=== PATIENT | female | born 1990 | race Caucasian/White ===

== ENCOUNTER 2017-02-04 23:36 | Emergency (ER) | payer OTHER ==
[~2017-02-04] VITALS: Ht 167.6 cm; Wt 49.9 kg
[~2017-02-04 23:36] MED LIST: ACIPHEX20 MG PO; ANAPROX DS550 MG PO; ATIVAN0.5 MG PO; BACTRIM DS 8001 TA1 PO; BACTRIM PEDIAT200 ML PO; CIPRO500 MG PO; CIPROFLOXACIN500 MG PO; CLARITIN10 MG PO; CLEOCIN150 MG PO; CLINDAMYCIN HC300 MG PO; COLACE-T100 MG PO; DOK COLACE100 MG PO; FIORICET 325 MG1 TAB PO; FLONASE 0.05% 121 EA NAS; GYNE-LOTRIMIN 31 KIT VG; HYDROCODONE BIT1 T11 PO; IBU-6600 MG PO; IRON TABLETS325 MG PO; KEFLEX500 MG PO; MACROBID100 M1 PO; MEDROL DOSEPAK4 MG PO; MOTRIN 800 MG E4 TAB PO; MOTRIN400 MG PO; MOTRIN600 MG PO; MOTRIN800 MG PO; MUCINEX D 600 M1 TE1; NAPROSYN500 MG PO; NITROFURANTOIN100 M9 PO; NKHM; OMNICEF300 MG; PHENERGAN25 M3 PO; PHENERGAN6.25 MG/5 PO; PRENATAL1 TA1 PO; PRENATAL1 TA7 PO; PROTONIX40 MG PO; Peridex 473 ML473 ML PO; SALINE 45 ML45 M1 NAS; TOBRAMYCIN 5 ML5 M1 OPH; TRAMADOL HCL50 MG PO; ULTRAM50 MG PO; ZITHROMAX Z PA250 MG PO; ZITHROMAX250 MG PO; ZYRTEC10 MG PO; [UNRECOGNIZED DRUG - OTHER] PO
[2017-02-05] MEDS ORDERED: Motrin,Rufen800 MG PO (00:21)
[2017-02-05] MEDS ORDERED: CLINDAMYCIN HC300 MG PO (00:21)
== END 2017-02-05 00:31 | disposition home or self-care (01) ==
LOC: ED 23:36
DX: K08.89 Other specified disorders of teeth and supporting structures (principal); F17.200 Nicotine dependence, unspecified, uncomplicated; Z88.1 Allergy status to other antibiotic agents

== ENCOUNTER 2017-02-09 19:55 | Emergency (ER) | payer OTHER ==
[~2017-02-09] VITALS: Ht 165.1 cm; Wt 52.2 kg
[~2017-02-09 19:55] MED LIST changes: +Motrin,Rufen800 MG PO
== END 2017-02-09 22:13 | disposition home or self-care (01) ==
LOC: ED 19:55
DX: Z32.01 Encounter for pregnancy test, result positive (principal); Z3A.01 Less than 8 weeks gestation of pregnancy; Z88.1 Allergy status to other antibiotic agents

== ENCOUNTER → 2017-02-25 | Outpatient (CLI) | payer OTHER | END | disposition home or self-care (01) | LOC: US 16:50 | DX: Z34.80 Encounter for supervision of other normal pregnancy, unspecified trimester (principal); Z3A.00 Weeks of gestation of pregnancy not specified ==

== ENCOUNTER 2017-03-28 19:58 | Emergency (ER) | payer OTHER ==
[~2017-03-28] VITALS: Ht 165.1 cm; Wt 54.9 kg
[2017-03-28 20:55] LABS: BILIRUBIN NEGATIVE (NEGATIVE); BLOOD NEGATIVE (NEGATIVE); CLARITY CLEAR (CLEAR); COLOR YELLOW (YELLOW); GLUCOSE NEGATIVE (NEGATIVE); KETONE TRACE (NEGATIVE); LEUKO ESTERASE TRACE (NEGATIVE); NITRITE POSITIVE (NEGATIVE); PROTEIN NEGATIVE (NEGATIVE); SPECIFIC GRAVITY 1.025 (1.005-1.030)
[2017-03-28 21:04] LABS: CALCIUM OXALATE CRYSTALS 2+
[2017-03-28 21:05] LABS: URINE REFLEX COMMENT YES (NO)
== END 2017-03-28 20:47 | disposition home or self-care (01) ==
LOC: ED 19:58
PROVIDERS: Student in an Organized Health Care Education/Training Program
DX: O23.41 Unspecified infection of urinary tract in pregnancy, first trimester (principal); O99.341 Other mental disorders complicating pregnancy, first trimester; F41.9 Anxiety disorder, unspecified; G43.909 Migraine, unspecified, not intractable, without status migrainosus; Z88.1 Allergy status to other antibiotic agents; Z3A.11 11 weeks gestation of pregnancy

== ENCOUNTER 2017-08-03 10:23 | Emergency (ER) | payer OTHER ==
[~2017-08-03] VITALS: Ht 162.5 cm; Wt 63.5 kg
[2017-08-03] MEDS ORDERED: AVPAK AZITHROM250 M1 PO (10:47)
== END 2017-08-03 11:22 | disposition home or self-care (01) ==
LOC: ED 10:23
DX: O99.513 Diseases of the respiratory system complicating pregnancy, third trimester (principal); J06.9 Acute upper respiratory infection, unspecified; O99.333 Smoking (tobacco) complicating pregnancy, third trimester; O26.893 Other specified pregnancy related conditions, third trimester; G43.909 Migraine, unspecified, not intractable, without status migrainosus; Z88.1 Allergy status to other antibiotic agents; Z3A.29 29 weeks gestation of pregnancy

== ENCOUNTER 2017-08-09 17:39 | Emergency (ER) | payer OTHER ==
[~2017-08-09] VITALS: Ht 167.6 cm; Wt 63.5 kg
[~2017-08-09 17:39] MED LIST changes: +AVPAK AZITHROM250 M1 PO
[2017-08-09 17:58] LABS: BILIRUBIN NEGATIVE (NEGATIVE); BLOOD TRACE-INTACT (NEGATIVE); CLARITY CLOUDY (CLEAR); COLOR YELLOW (YELLOW); GLUCOSE NEGATIVE (NEGATIVE); KETONE NEGATIVE (NEGATIVE); LEUKO ESTERASE 3+ (NEGATIVE); NITRITE POSITIVE (NEGATIVE); PH 5.5 (5.0-9.0); SPECIFIC GRAVITY <= 1.005 (1.005-1.030); UROBILINOGEN 0.2 E.U./dl (0.2-1.0)
[2017-08-09 18:05] LABS: BACTERIA 4+
[2017-08-09 18:06] LABS: WBC 51-100 wbc/hpf (0-5)
[2017-08-09] MEDS ORDERED: MACROBID100 M1 PO (19:03)
== END 2017-08-09 22:04 | disposition home or self-care (01) ==
LOC: ED 17:39
PROVIDERS: Physician Assistant
DX: O23.43 Unspecified infection of urinary tract in pregnancy, third trimester (principal); Z88.1 Allergy status to other antibiotic agents; Z3A.30 30 weeks gestation of pregnancy

== ENCOUNTER 2017-12-30 17:56 | Emergency (ER) | payer OTHER ==
[~2017-12-30] VITALS: Ht 167.6 cm; Wt 56.7 kg
[2017-12-30] MEDS ORDERED: Peridex 473 ML473 ML PO (18:11)
[2017-12-30] MEDS ORDERED: NAPROSYN500 MG PO (18:11)
[2017-12-30] MEDS ORDERED: CLINDAMYCIN150 MG PO (18:11)
== END 2017-12-30 18:23 | disposition home or self-care (01) ==
LOC: ED 17:56
DX: K02.9 Dental caries, unspecified (principal); F17.200 Nicotine dependence, unspecified, uncomplicated; F41.9 Anxiety disorder, unspecified; Z88.1 Allergy status to other antibiotic agents

== ENCOUNTER 2018-05-07 04:15 | Emergency (ER) | payer OTHER ==
[~2018-05-07] VITALS: Ht 167.6 cm; Wt 56.7 kg
[~2018-05-07 04:15] MED LIST changes: +CLINDAMYCIN150 MG PO
[2018-05-07] MEDS ORDERED: CLINDAMYCIN HC300 MG PO (04:25)
[2018-05-07] MEDS ORDERED: Motrin,Rufen800 MG PO (04:25)
== END 2018-05-07 04:46 | disposition home or self-care (01) ==
LOC: ED 04:15
DX: K02.9 Dental caries, unspecified (principal); K04.01 Reversible pulpitis; G43.909 Migraine, unspecified, not intractable, without status migrainosus; F17.200 Nicotine dependence, unspecified, uncomplicated; Z88.1 Allergy status to other antibiotic agents; Z79.899 Other long term (current) drug therapy

== ENCOUNTER 2018-05-27 01:29 | Emergency (ER) | payer OTHER ==
[~2018-05-27] VITALS: Ht 165.1 cm; Wt 54.4 kg
[2018-05-27 01:50] LABS: BILIRUBIN NEGATIVE (NEGATIVE); BLOOD NEGATIVE (NEGATIVE); CLARITY CLEAR (CLEAR); COLOR YELLOW (YELLOW); GLUCOSE NEGATIVE (NEGATIVE); KETONE NEGATIVE (NEGATIVE); LEUKO ESTERASE NEGATIVE (NEGATIVE); NITRITE NEGATIVE (NEGATIVE); PH 7.5 (5.0-9.0); UROBILINOGEN 0.2 E.U./dl (0.2-1.0)
[2018-05-27 02:03] LABS: EPITHELIAL CELLS 0-5
== END 2018-05-27 02:30 | disposition home or self-care (01) ==
LOC: ED 01:29
PROVIDERS: Student in an Organized Health Care Education/Training Program
DX: Z32.02 Encounter for pregnancy test, result negative (principal); F17.200 Nicotine dependence, unspecified, uncomplicated; G43.909 Migraine, unspecified, not intractable, without status migrainosus; Z88.1 Allergy status to other antibiotic agents; Z79.899 Other long term (current) drug therapy

== ENCOUNTER 2018-08-14 19:41 | Emergency (ER) | payer OTHER ==
[~2018-08-14] VITALS: Ht 165.1 cm; Wt 59.0 kg
[2018-08-14] MEDS ORDERED: CLEOCIN HCL150 MG PO (20:01)
[2018-08-14] MEDS ORDERED: NAPROSYN500 MG PO (20:01)
== END 2018-08-14 20:09 | disposition home or self-care (01) ==
LOC: ED 19:41
DX: K04.7 Periapical abscess without sinus (principal); Z88.0 Allergy status to penicillin; Z88.1 Allergy status to other antibiotic agents

== ENCOUNTER 2019-01-22 10:35 | Emergency (ER) | payer OTHER ==
[~2019-01-22] VITALS: Ht 165.1 cm; Wt 56.7 kg
[~2019-01-22 10:35] MED LIST changes: +CLEOCIN HCL150 MG PO
[2019-01-22] MEDS ORDERED: IBU800 MG PO (11:38)
[2019-01-22] MEDS ORDERED: CLEOCIN HCL150 MG PO (11:38)
[2019-02-04] MEDS ORDERED: PREDNISONE50 MG PO (12:38)
[2019-02-04] MEDS ORDERED: ZITHROMAX250 MG PO (12:38)
[2019-02-04] MEDS ORDERED: FLONASE ALLERG9.9 ML NAS (12:38)
== END 2019-01-22 12:11 | disposition home or self-care (01) ==
LOC: ED 10:35
DX: S02.5XXA Fracture of tooth (traumatic), initial encounter for closed fracture (principal); F17.200 Nicotine dependence, unspecified, uncomplicated; Z88.1 Allergy status to other antibiotic agents; X58.XXXA Exposure to other specified factors, initial encounter; Y93.89 Activity, other specified; Y92.89 Other specified places as the place of occurrence of the external cause; Y99.8 Other external cause status

== ENCOUNTER 2019-02-23 13:13 | Emergency (ER) | payer OTHER ==
[~2019-02-23] VITALS: Ht 165.1 cm; Wt 54.4 kg
[~2019-02-23 13:13] MED LIST changes: +FLONASE ALLERG9.9 ML NAS; +IBU800 MG PO; +PREDNISONE50 MG PO
[2019-02-23] MEDS ORDERED: BUSPAR5 MG PO (13:16)
[2019-02-23] MEDS ORDERED: CLINDAMYCIN HC300 MG PO (13:44)
[2019-02-23] MEDS ORDERED: ANAPROX DS550 MG PO (13:44)
== END 2019-02-23 14:10 | disposition home or self-care (01) ==
LOC: ED 13:13
DX: K04.7 Periapical abscess without sinus (principal); F17.200 Nicotine dependence, unspecified, uncomplicated; Z88.1 Allergy status to other antibiotic agents; Z79.899 Other long term (current) drug therapy

== ENCOUNTER 2019-04-08 20:47 | Emergency (ER) | payer SELFPAY ==
[~2019-04-08 20:47] MED LIST changes: +BUSPAR5 MG PO
[2019-04-08 21:40] LABS: BASO # 0.1 10*3/uL (0.0-0.1); BASO % 0.4 % (0.0-1.0); EOS # 0.3 10*3/uL (0.0-0.4); EOS % 2.4 % (1.0-4.0); HEMATOCRIT 35.6 % (37.0-47.0); HEMOGLOBIN 12.4 g/dl (12.0-16.0); LYMPH # 3.2 10*3/uL (1.3-4.4); LYMPH % 26.6 % (27.0-41.0); MEAN CORPUSCULAR HGB 31.7 pg (27.0-31.0); MEAN CORPUSCULAR HGB CONC 34.8 g/dl (33.0-37.0); MEAN PLATELET VOLUME 9.7 fl (9.6-12.3); MONO # 0.6 10*3/uL (0.1-1.0); MONO % 5.3 % (3.0-9.0); NEUT # 7.8 10*3/uL (2.3-7.9); PLATELET COUNT AUTOMATED 244 10*3/uL (130-400); RED BLOOD COUNT 3.91 10*6/uL (4.10-5.10); RED CELL DISTRI WIDTH 12.3 % (0-14.5)
[2019-04-08 22:00] LABS: ALBUMIN 3.5 gm/dl (3.1-4.5); ALKALINE PHOSPHATASE 75 U/L (45-117); BUN 8 mg/dl (7-24); CHLORIDE 109 mmol/L (98-107); CREATININE 0.72 mg/dL (0.55-1.02); POTASSIUM 3.6 mmol/L (3.5-5.1); SGPT/ALT 11 U/L (12-78); SODIUM 140 mmol/L (136-145); TOTAL PROTEIN 7.1 gm/dL (6.4-8.2)
[2019-04-08 22:02] LABS: SGOT/AST < 3 IU/L (3-35)
[2019-04-09 00:12] LABS: BILIRUBIN NEGATIVE (NEGATIVE); BLOOD 3+ (NEGATIVE); CLARITY CLEAR (CLEAR); COLOR YELLOW (YELLOW); GLUCOSE NEGATIVE (NEGATIVE); KETONE NEGATIVE (NEGATIVE); LEUKO ESTERASE NEGATIVE (NEGATIVE); NITRITE NEGATIVE (NEGATIVE); SPECIFIC GRAVITY <= 1.005 (1.005-1.030); UROBILINOGEN 0.2 E.U./dl (0.2-1.0)
[2019-04-09 00:24] LABS: BACTERIA 4+
== END 2019-04-09 01:00 | disposition home or self-care (01) ==
LOC: ED 20:47
PROVIDERS: Physician Assistant
DX: O20.9 Hemorrhage in early pregnancy, unspecified (principal); Z3A.09 9 weeks gestation of pregnancy; Z88.1 Allergy status to other antibiotic agents; Z79.2 Long term (current) use of antibiotics; Z79.899 Other long term (current) drug therapy

== ENCOUNTER 2019-06-15 15:38 | Emergency (ER) | payer OTHER ==
[~2019-06-15] VITALS: Ht 165.1 cm; Wt 56.7 kg
[2019-06-15 15:56] LABS: BILIRUBIN NEGATIVE (NEGATIVE); BLOOD 1+ (NEGATIVE); CLARITY CLOUDY (CLEAR); COLOR YELLOW (YELLOW); GLUCOSE NEGATIVE (NEGATIVE); KETONE NEGATIVE (NEGATIVE); LEUKO ESTERASE 3+ (NEGATIVE); NITRITE POSITIVE (NEGATIVE); SPECIFIC GRAVITY 1.015 (1.005-1.030); UROBILINOGEN 0.2 E.U./dl (0.2-1.0)
[2019-06-15 16:11] LABS: BASO # 0.1 10*3/uL (0.0-0.1); BASO % 0.5 % (0.0-1.0); EOS # 0.2 10*3/uL (0.0-0.4); EOS % 1.7 % (1.0-4.0); HEMATOCRIT 33.8 % (37.0-47.0); HEMOGLOBIN 11.4 g/dl (12.0-16.0); LYMPH # 2.3 10*3/uL (1.3-4.4); LYMPH % 18.4 % (27.0-41.0); MEAN CELL VOLUME 95.8 fl (81.0-99.0); MEAN CORPUSCULAR HGB 32.3 pg (27.0-31.0); MEAN CORPUSCULAR HGB CONC 33.7 g/dl (33.0-37.0); MEAN PLATELET VOLUME 9.4 fl (9.6-12.3); MONO # 0.6 10*3/uL (0.1-1.0); MONO % 4.5 % (3.0-9.0); NEUT # 9.4 10*3/uL (2.3-7.9); NEUT % 74.3 % (47.0-73.0); PLATELET COUNT AUTOMATED 241 10*3/uL (130-400); RED BLOOD COUNT 3.53 10*6/uL (4.10-5.10); RED CELL DISTRI WIDTH 13.3 % (0-14.5); WHITE BLOOD COUNT 12.7 10*3/uL (4.8-10.8)
[2019-06-15 16:25] LABS: ALKALINE PHOSPHATASE 79 U/L (45-117); BUN 6 mg/dl (7-24); CHLORIDE 108 mmol/L (98-107); CREATININE 0.63 mg/dL (0.55-1.02); POTASSIUM 3.5 mmol/L (3.5-5.1); SGOT/AST 10 IU/L (3-35); SGPT/ALT 13 U/L (12-78); SODIUM 137 mmol/L (136-145); TOTAL PROTEIN 7.1 gm/dL (6.4-8.2)
[2019-06-15 16:43] LABS: BACTERIA 4+; WBC TNTC wbc/hpf (0-5)
[2019-06-15] MEDS ORDERED: MACROBID100 M1 PO (16:48)
== END 2019-06-15 16:51 | disposition home or self-care (01) ==
LOC: ED 15:38
PROVIDERS: Physician Assistant
DX: O23.42 Unspecified infection of urinary tract in pregnancy, second trimester (principal); Z3A.19 19 weeks gestation of pregnancy; Z88.1 Allergy status to other antibiotic agents; Z79.899 Other long term (current) drug therapy

== ENCOUNTER 2019-08-01 11:43 | Emergency (ER) | payer OTHER ==
[~2019-08-01] VITALS: Ht 165.1 cm; Wt 57.6 kg
[2019-08-01 12:04] LABS: BILIRUBIN NEGATIVE (NEGATIVE); BLOOD NEGATIVE (NEGATIVE); CLARITY SL CLOUDY (CLEAR); COLOR STRAW (YELLOW); GLUCOSE NEGATIVE (NEGATIVE); KETONE NEGATIVE (NEGATIVE); LEUKO ESTERASE 2+ (NEGATIVE); NITRITE NEGATIVE (NEGATIVE); SPECIFIC GRAVITY <= 1.005 (1.005-1.030); UROBILINOGEN 0.2 E.U./dl (0.2-1.0)
[2019-08-01 12:10] LABS: BACTERIA 4+; WBC 51-100 wbc/hpf (0-5)
[2019-08-01] MEDS ORDERED: MACROBID100 M1 PO (12:31)
== END 2019-08-01 12:32 | disposition home or self-care (01) ==
LOC: ED 11:43
PROVIDERS: Nurse Practitioner Family
DX: O23.42 Unspecified infection of urinary tract in pregnancy, second trimester (principal); Z3A.25 25 weeks gestation of pregnancy; Z88.1 Allergy status to other antibiotic agents; Z79.2 Long term (current) use of antibiotics; Z79.899 Other long term (current) drug therapy

== ENCOUNTER 2019-10-06 11:43 | Emergency (ER) | payer OTHER ==
[~2019-10-06] VITALS: Ht 165.1 cm; Wt 63.5 kg
[2019-10-06 12:10] LABS: BILIRUBIN NEGATIVE (NEGATIVE); BLOOD NEGATIVE (NEGATIVE); CLARITY SL CLOUDY (CLEAR); COLOR YELLOW (YELLOW); GLUCOSE NEGATIVE (NEGATIVE); KETONE NEGATIVE (NEGATIVE); LEUKO ESTERASE 2+ (NEGATIVE); NITRITE POSITIVE (NEGATIVE); SPECIFIC GRAVITY 1.015 (1.005-1.030); UROBILINOGEN 0.2 E.U./dl (0.2-1.0)
[2019-10-06 12:37] LABS: BACTERIA 4+; WBC 31-40 wbc/hpf (0-5)
== END 2019-10-06 13:30 | disposition short-term general hospital (02) ==
LOC: ED 11:43
PROVIDERS: Emergency Medicine
DX: O62.9 Abnormality of forces of labor, unspecified (principal); O99.353 Diseases of the nervous system complicating pregnancy, third trimester; G43.909 Migraine, unspecified, not intractable, without status migrainosus; Z3A.38 38 weeks gestation of pregnancy; Z88.1 Allergy status to other antibiotic agents; Z79.2 Long term (current) use of antibiotics; Z79.899 Other long term (current) drug therapy

== ENCOUNTER 2019-10-31 15:10 | Emergency (ER) | payer OTHER ==
[~2019-10-31] VITALS: Ht 165.1 cm; Wt 64.9 kg
[2019-10-31] MEDS ORDERED: CLINDAMYCIN HC300 MG PO (15:29)
== END 2019-10-31 15:27 | disposition home or self-care (01) ==
LOC: ED 15:10
DX: O99.613 Diseases of the digestive system complicating pregnancy, third trimester (principal); K04.7 Periapical abscess without sinus; Z3A.36 36 weeks gestation of pregnancy; Z88.1 Allergy status to other antibiotic agents

== ENCOUNTER 2022-08-26 13:45 | Emergency (ER) | payer OTHER ==
[~2022-08-26] VITALS: Ht 165.1 cm; Wt 68.0 kg
[2022-08-26] MEDS ORDERED: CLINDAMYCIN HC300 MG PO (13:59)
== END 2022-08-26 14:16 | disposition home or self-care (01) ==
LOC: ED 13:45
DX: K08.89 Other specified disorders of teeth and supporting structures (principal); Z88.1 Allergy status to other antibiotic agents

== ENCOUNTER 2022-12-10 15:10 | Emergency (ER) | payer OTHER ==
[~2022-12-10] VITALS: Ht 165.1 cm; Wt 73.5 kg
[2022-12-10] MEDS ORDERED: VIBRAMYCIN100 MG PO (17:36)
== END 2022-12-10 17:56 | disposition home or self-care (01) ==
LOC: ED 15:10
DX: H66.92 Otitis media, unspecified, left ear (principal); Z88.1 Allergy status to other antibiotic agents; Z98.890 Other specified postprocedural states

== ENCOUNTER 2023-07-22 14:32 | Emergency (ER) | payer OTHER ==
[~2023-07-22] VITALS: Ht 167.6 cm; Wt 73.5 kg
[~2023-07-22 14:32] MED LIST changes: +VIBRAMYCIN100 MG PO
[2023-07-22 15:16] LABS: BILIRUBIN Negative (Negative); BLOOD Negative (Negative); CLARITY Clear (Clear); COLOR Yellow (Yellow); GLUCOSE Negative (Negative); KETONE Negative (Negative); LEUKO ESTERASE Trace (Negative); NITRITE Negative (Negative); SPECIFIC GRAVITY >= 1.030 (1.001-1.030)
[2023-07-22 15:47] LABS: BACTERIA 2+; EPITHELIAL CELLS 16-20
[2023-07-22] MEDS ORDERED: CIPRO500 MG PO (16:12)
== END 2023-07-22 16:21 | disposition home or self-care (01) ==
LOC: ED 14:32
PROVIDERS: Emergency Medicine
DX: N39.0 Urinary tract infection, site not specified (principal); Z88.1 Allergy status to other antibiotic agents

== ENCOUNTER 2023-08-23 15:08 | Emergency (ER) | payer OTHER | END 2023-08-23 15:38 | disposition left against medical advice (07) | LOC: ED 15:08 | DX: J02.9 Acute pharyngitis, unspecified (principal); H92.01 Otalgia, right ear; Z88.1 Allergy status to other antibiotic agents; Z53.21 Procedure and treatment not carried out due to patient leaving prior to being seen by health care provider ==

== ENCOUNTER 2024-05-03 11:45 | Emergency (ER) | payer OTHER ==
[~2024-05-03] VITALS: Ht 162.5 cm; Wt 72.6 kg
[2024-05-03] MEDS ORDERED: CLINDAMYCIN HCL 300 MG CAPSULE PO ONE (12:05)
[2024-05-03] MEDS ORDERED: CLEOCIN HCL300 MG PO (12:07)
== END 2024-05-03 12:23 | disposition home or self-care (01) ==
LOC: ED 11:45
DX: K04.7 Periapical abscess without sinus (principal); F41.9 Anxiety disorder, unspecified; Z88.1 Allergy status to other antibiotic agents

== ENCOUNTER 2024-08-02 23:36 | Emergency (ER) | payer OTHER ==
[~2024-08-02] VITALS: Ht 165.1 cm; Wt 74.8 kg
[~2024-08-02 23:36] MED LIST changes: +CLEOCIN HCL300 MG PO
[2024-08-03 00:17] LABS: BILIRUBIN Negative (Negative); BLOOD Negative (Negative); CLARITY Clear (Clear); COLOR Yellow (Yellow); GLUCOSE Negative (Negative); KETONE Trace (Negative); LEUKO ESTERASE Negative (Negative); NITRITE Negative (Negative); SPECIFIC GRAVITY >= 1.030 (1.001-1.030)
[2024-08-03 00:25] LABS: BACTERIA TRACE; MUCOUS 2+; RBC 0-2 rbc/hpf (0-2)
[2024-08-03] MEDS ORDERED: METHOCARBAMOL 500 MG TAB PO ONE (00:35)
[2024-08-03] MEDS ORDERED: Ketorolac Tromethamine 60 MG/2 ML VIAL IM ONE (00:35)
[2024-08-03] MEDS ORDERED: NAPROXEN250 MG PO (00:39)
[2024-08-03] MEDS ORDERED: METHOCARBAMOL500 M1 PO (00:39)
== END 2024-08-03 00:56 | disposition home or self-care (01) ==
LOC: ED 23:36
PROVIDERS: Internal Medicine
DX: S39.012A Strain of muscle, fascia and tendon of lower back, initial encounter (principal); F41.9 Anxiety disorder, unspecified; R30.0 Dysuria; Z88.1 Allergy status to other antibiotic agents; X58.XXXA Exposure to other specified factors, initial encounter; Y93.89 Activity, other specified; Y92.009 Unspecified place in unspecified non-institutional (private) residence as the place of occurrence of the external cause; Y99.8 Other external cause status

== ENCOUNTER 2024-08-19 16:31 | Emergency (ER) | payer OTHER ==
[~2024-08-19] VITALS: Ht 165.1 cm; Wt 72.6 kg
[~2024-08-19 16:31] MED LIST changes: +METHOCARBAMOL500 M1 PO; +NAPROXEN250 MG PO
== END 2024-08-19 17:57 | disposition left against medical advice (07) ==
LOC: ED 16:31
DX: N93.9 Abnormal uterine and vaginal bleeding, unspecified (principal); F41.9 Anxiety disorder, unspecified; Z88.1 Allergy status to other antibiotic agents; Z53.29 Procedure and treatment not carried out because of patient's decision for other reasons

== ENCOUNTER 2024-09-27 11:38 | Emergency (ER) | payer OTHER ==
[~2024-09-27] VITALS: Ht 162.5 cm; Wt 72.6 kg
[2024-09-27] MEDS ORDERED: AVPAK AZITHROM250 M1 PO (12:25)
[2024-09-27] MEDS ORDERED: MEDROL DOSEPAK4 MG PO (12:25)
== END 2024-09-27 12:56 | disposition home or self-care (01) ==
LOC: ED 11:38
DX: J32.9 Chronic sinusitis, unspecified (principal); F41.9 Anxiety disorder, unspecified; H92.01 Otalgia, right ear; Z88.1 Allergy status to other antibiotic agents

== ENCOUNTER 2024-12-29 07:42 | Emergency (ER) | payer OTHER ==
[~2024-12-29] VITALS: Ht 165.1 cm; Wt 73.5 kg
[2024-12-29] MEDS ORDERED: CLINDAMYCIN HCL 300 MG CAPSULE PO ONE (08:00)
[2024-12-29] MEDS ORDERED: Acetaminophen/Oxycodone 5 MG/325 MG TABLET PO ONE (08:00)
[2024-12-29] MEDS ORDERED: MELOXICAM15 MG PO (08:04)
[2024-12-29] MEDS ORDERED: CLINDAMYCIN HC300 MG PO (08:04)
== END 2024-12-29 08:12 | disposition home or self-care (01) ==
LOC: ED 07:42
DX: K04.7 Periapical abscess without sinus (principal); Z88.1 Allergy status to other antibiotic agents

== ENCOUNTER 2025-05-11 21:12 | Emergency (ER) | payer OTHER ==
[~2025-05-11] VITALS: Ht 167.6 cm; Wt 66.2 kg
[~2025-05-11 21:12] MED LIST changes: +MELOXICAM15 MG PO
[2025-05-11] MEDS ORDERED: Lidocaine Hydrochloride 2% 10 ML AMP SC ONE (21:25)
[2025-05-11] MEDS ORDERED: Tdap Vaccine 0.5 ML SYR (Adult Vaccine) IM ONE (21:25)
[2025-05-11] MEDS ORDERED: Bacitracin Zinc 14 GM TUBE T ONE (21:25)
[2025-05-11] MEDS ORDERED: CEPHALEXIN500 M1 PO (21:44)
[2025-05-11] MEDS ORDERED: CEPHALEXIN 500 MG CAP PO ONE (21:45)
== END 2025-05-11 21:47 | disposition home or self-care (01) ==
LOC: ED 21:12
DX: S91.311A Laceration without foreign body, right foot, initial encounter (principal); G43.909 Migraine, unspecified, not intractable, without status migrainosus; F41.9 Anxiety disorder, unspecified; Z79.899 Other long term (current) drug therapy; Z88.0 Allergy status to penicillin; W26.8XXA Contact with other sharp object(s), not elsewhere classified, initial encounter; Y93.01 Activity, walking, marching and hiking; Y92.096 Garden or yard of other non-institutional residence as the place of occurrence of the external cause; Y99.8 Other external cause status

== ENCOUNTER 2025-09-02 13:54 | Emergency (ER) | payer OTHER ==
[~2025-09-02] VITALS: Ht 165.1 cm; Wt 72.6 kg
[~2025-09-02 13:54] MED LIST changes: +CEPHALEXIN500 M1 PO
[2025-09-02] MEDS ORDERED: VIBRAMYCIN100 MG PO (14:33)
== END 2025-09-02 15:33 | disposition home or self-care (01) ==
LOC: ED 13:54
DX: H66.41 Suppurative otitis media, unspecified, right ear (principal); Z88.1 Allergy status to other antibiotic agents; Z79.899 Other long term (current) drug therapy

== ENCOUNTER 2025-11-07 21:50 | Emergency (ER) | payer OTHER ==
[~2025-11-07] VITALS: Ht 165.1 cm; Wt 73.9 kg
== END 2025-11-07 23:35 | disposition home or self-care (01) ==
LOC: ED 21:50
DX: B34.9 Viral infection, unspecified (principal); F41.9 Anxiety disorder, unspecified; Z88.1 Allergy status to other antibiotic agents

== ENCOUNTER 2025-11-12 12:17 | Emergency (ER) | payer OTHER ==
[~2025-11-12] VITALS: Ht 165.1 cm; Wt 74.4 kg
[2025-11-12] MEDS ORDERED: PREDNISONE50 MG PO (13:22)
[2025-11-12] MEDS ORDERED: ZITHROMAX250 MG PO (13:22)
[2025-11-12] MEDS ORDERED: AZITHROMYCIN 250 MG TAB PO ONE (13:25)
[2025-11-12] MEDS ORDERED: predniSONE 20 MG TAB PO ONE (13:30)
== END 2025-11-12 13:33 | disposition home or self-care (01) ==
LOC: ED 12:17
DX: J02.9 Acute pharyngitis, unspecified (principal); F41.9 Anxiety disorder, unspecified; Z88.1 Allergy status to other antibiotic agents